=== PATIENT | male | born 1970 | race American Indian/Alaskan Native ===

== ENCOUNTER 2020-11-09 16:16 | Emergency (ER) | payer SELFPAY ==
[2020-11-09 16:24] VITALS: BP 147/90
--- NOTE | 2020-11-09 16:56 | Emergency Department Report ---
ED Medical Clearance HPI - General Chief complaint: Medical Clearance Stated complaint: NEEDS X-RAY Time Seen by Provider: 11/09/20 16:25 Source: patient Mode of arrival: Ambulatory - History of Present Illness Initial comments: Patient is a 50-year-old male presents emergency room for medical clearance. He states he is going to [facility] for inpatient detox. He states that he needs to have a chest x-ray in order to be cleared. He states that he has already had blood work to be cleared he just needs an x-ray. Patient states that he did have a positive TB test while in the in 1998 and completed a course of antibiotics. He states that he is not able to get the TB test and has to have chest x-rays and that is why he presents to the emergency room. He denies any symptoms at all. He denies any fever, chills, night sweats, nausea, vomiting, diarrhea, cough, shortness of breath, chest pain. He denies any other past medical history. No allergies to medications. He states he is going to [place] detox for cocaine and alcohol abuse. He states that he last used on 11/03/2020. ED Review of Systems ROS: Stated complaint: NEEDS X-RAY Other details as noted in HPI Comment: All other systems reviewed and negative ED Past Medical Hx - Past Medical History Previous Medical History?: No - Social History Smoking Status: Current Every Day Smoker Substance Use Type: Alcohol, Cocaine ED Physical Exam - General Limitations: No Limitations General appearance: alert, in no apparent distress - Head Head exam: Present: atraumatic, normocephalic - Eye Eye exam: Present: normal appearance - ENT ENT exam: Present: mucous membranes moist - Respiratory Respiratory exam: Present: normal lung sounds bilaterally. Absent: respiratory distress, wheezes, rales, rhonchi, stridor, chest wall tenderness, accessory muscle use, decreased breath sounds, prolonged expiratory - Cardiovascular Cardiovascular Exam: Present: regular rate, normal rhythm, normal heart sounds. Absent: systolic murmur, diastolic murmur, rubs, gallop - Neurological Exam Neurological exam: Present: alert, oriented X3 - Psychiatric Psychiatric exam: Present: normal affect, normal mood - Skin Skin exam: Present: warm, dry, intact ED Course Vital Signs 11/09/20 16:23 Temperature 98.5 F Pulse Rate 91 H Respiratory 18 Rate Blood Pressure 147/90 O2 Sat by Pulse 97 Oximetry ED Medical Decision Making - Radiology Data Radiology results: report reviewed Ordering Physician: MILO STANTON Date of Service: 11/09/20 Procedure(s): XR chest routine 2V Accession Number(s): [id number] cc: MILO STANTON Fluoro Time In Minutes: CHEST 2 VIEWS INDICATION / CLINICAL INFORMATION: medical clearance. COMPARISON: None available. FINDINGS: SUPPORT DEVICES: None. HEART / MEDIASTINUM: No significant abnormality. LUNGS / PLEURA: Clear lungs. No significant pleural effusion. No pneumothorax. ADDITIONAL FINDINGS: No significant additional findings. IMPRESSION: 1. No acute abnormality of the chest. Signer Name: Willian Cardona MD Signed: 11/09/2020 5:42 PM Workstation Name: [id number] Transcribed By: ANIA Dictated By: Willian Cardona MD Electronically Authenticated By: Willian Cardona MD Signed Date/Time: 11/09/201741 DD/ 39 TD/TT: - Medical Decision Making Patient is a 50-year-old male presents emergency room for medical clearance. He states he is going to [facility] for inpatient detox. He states that he needs to have a chest x-ray in order to be cleared. He states that he has already had blood work to be cleared he just needs an x-ray. Patient states angelo t he did have a positive TB test while in the in 1998 and completed a course of antibiotics. He states that he is not able to get the TB test and has to have chest x-rays and that is why he presents to the emergency room. He denies any symptoms at all. He denies any fever, chills, night sweats, nausea, vomiting, diarrhea, cough, shortness of breath, chest pain. He denies any other past medical history. No allergies to medications. He states he is going to [place] detox for cocaine and alcohol abuse. He states that he last used on 11/03/2020. VSS. No abnormality on physical examination as documented in chart. CXR: 1. No acute abnormality of the chest. Discussed all findings with patient and answered questions. advised pt You do not have an emergent condition on your chest x-ray preventing detox, you are cleared based on your chest x-ray for detox. discussed the importance of PCP follow up and strict return precautions. ED Disposition Clinical Impression: General medical exam, Normal chest x-ray Disposition: DC- TO HOME OR SELFCARE Is pt being admited?: No Does the pt Need Aspirin: No Condition: Stable Additional Instructions: You do not have an emergent condition on your chest x-ray preventing detox, you are cleared based on your chest x-ray for detox Referrals: PRIMARY CARE, [Primary Care Provider] - 2-3 Days Time of Disposition: 17:52 Print Language: GREEK
--- NOTE | 2020-11-09 17:46 | XRay Report ---
CHEST 2 VIEWS INDICATION / CLINICAL INFORMATION: medical clearance. COMPARISON: None available. FINDINGS: SUPPORT DEVICES: None. HEART / MEDIASTINUM: No significant abnormality. LUNGS / PLEURA: Clear lungs. No significant pleural effusion. No pneumothorax. ADDITIONAL FINDINGS: No significant additional findings. IMPRESSION: 1. No acute abnormality of the chest. Signer Name: Willian Cardona MD Signed: 11/09/2020 5:42 PM Workstation Name: [id number]
== END 2020-11-09 17:56 | disposition home or self-care (01) ==
LOC: ED 16:16
DX: Z00.00 Encounter for general adult medical examination without abnormal findings (principal); F17.200 Nicotine dependence, unspecified, uncomplicated; F14.10 Cocaine abuse, uncomplicated
CPT/HCPCS: 71046; 99283